=== PATIENT | female | born 1985 ===

== ENCOUNTER 2025-03-14 12:18 | Emergency (ER) | payer OTHER ==
[~2025-03-14] VITALS: Ht 172.7 cm; Wt 62.6 kg
[2025-03-14 12:41] VITALS: BP 98/68; O2SAT 100
[2025-03-14] MEDS ORDERED: 0.9 % SODIUM CHLORIDE 1,000 ML IV STA (13:06)
[2025-03-14 13:48] LABS: BASO % 0.6 % (0.1-1.2); EOS # 0.00 (0.04-0.54); EOS % 0.0 % (0.7-7.0); LYMPH # 0.40 (1.18-3.74); LYMPH % 12.2 % (19.3-53.1); MEAN PLATELET VOLUME 12.10 fl (9.4-12.4); MONO # 1.01 (0.24-0.82); NEUT # 1.83 (1.56-6.13); NEUT % 56.0 % (34.0-71.1); RED CELL DISTRIBUTION WIDTH 12.7 % (11.6-14.4)
[2025-03-14 14:16] LABS: URINE APPEARANCE Clear; URINE BILIRRUBIN Negative (NEGATIVE); URINE BLOOD Moderate; URINE COLOR Yellow; URINE GLUCOSE Negative (NEGATIVE); URINE KETONE 15 (NEGATIVE); URINE LEUKOCYTE Negative; URINE NITRATE Negative; URINE PROTEIN Trace (NEGATIVE); URINE UROBILINOGEN 2.0 E.U./dl
[2025-03-14 14:19] LABS: COVID-19 AG NEGATIVE (NEGATIVE)
[2025-03-14 14:20] LABS: BUN CREA RATIO 13.0 (7.0-25.0); CREATININE SERUM 0.78 mg/dL (0.55-1.02); GFR 82.65; GLUCOSE FASTING 86.0 mg/dL (65-100); OSMOLALITY SERUM 276.0 MOSM/KG (275-295)
[2025-03-14 14:20] LABS: URINE BACTERIA 117.5 uL (0.0-1933); URINE CAST 1.90 uL (0.0-1.40); URINE EPITHELIAL CELLS 16.2 uL (0.0-38.8); URINE RBC 44.5 uL (0.0-20.8); URINE WBC 15.8 uL (0.0-23.2)
[2025-03-14 14:35] LABS: BAND MAN 2.0 %; LYMPHOCYTE MAN 11.0 %; MONO % 30.9 % (4.7-12.5); MONOCYTE MAN 29.0 %; NEUTROPHILS MAN 54.0 %
[2025-03-14 14:55] LABS: TYPE CELLS SQUAMOUS; URINE YEAST FEW /hpf
== END 2025-03-14 16:21 | disposition home or self-care (01) ==
LOC: ER 12:18
PROVIDERS: Emergency Medicine
DX: R11.10 Vomiting, unspecified (principal)